=== PATIENT | female | born 1970 | race Hispanic/Latino ===

== ENCOUNTER 2017-12-09 17:05 | Emergency (ER) | payer OTHER ==
[2017-12-09 17:49] LABS: #Basophils 0.1 thou/uL (0.0-0.2); #Eosinphils 0.3 thou/uL (0.0-0.7); #Monocytes 0.8 thou/uL (0.11-0.59); #Neutrophils 6.7 thou/uL (1.40-6.50); %Basophils 0.5 % (0.0-1.0); %Eosinophils 2.7 % (0.0-10.0); %Lymphocytes 20.7 % (21.0-51.0); %Monocytes 7.7 % (0.0-10.0); %Neutrophils 68.4 % (42.0-75.0); Hemoglobin 15.8 g/dL (12.0-16.0); Mean Corpuscular HGB CONC 33.4 g/dL (32.0-36.0); Mean Corpuscular Hemoglobin 31.6 pg (27.0-31.0); Mean Corpuscular Volume 94.7 fl (81.0-99.0); Mean Platelet Volume 7.6 fL (7.4-10.4); Platelet Count 323 thou/uL (130-400); RBC Distribution Width 11.4 % (11.5-14.5); Red Blood Cell (RBC) Count 4.98 mill/uL (4.20-5.40); White Blood Cell (WBC) Count 9.8 thou/uL (4.8-10.8)
[2017-12-09 18:00] LABS: Bilirubin Negative (Negative); Blood, Urine Trace (Negative); Clarity CLOUDY (Clear); Glucose, Urine (Dipstick) Negative (Negative); Leukocyte Negative (Negative); Nitrite Negative (Negative); Protein, Urine (Dipstick) Negative (Neg-Trace); Specific Gravity, Urine 1.016 (1.002-1.036); Urobilinogen 0.2 mg/dL (0.2-1.0)
[2017-12-09 18:03] LABS: Bacteria/HPF 1+ HPF (None Seen); Hyaline Casts/LPF 0-3 HYALINE CAST LPF (0-3 Hyaline); WBC/HPF None Seen HPF (0-3)
[2017-12-09 18:06] LABS: RBC/HPF 0-3 HPF (0-3)
[2017-12-09 18:07] LABS: ALT (SGPT) 15 U/L (8-55); AST (SGOT) 17 U/L (5-34); Albumin 4.5 g/dL (3.5-5.0); Alkaline Phosphatase 88 U/L (40-150); Anion Gap 15 mmol/L (10-20); BUN (Urea Nitrogen) 12 mg/dL (7.0-18.7); Bilirubin, Total 0.4 mg/dL (0.2-1.2); Calc. Creatinine Clearance 0 mL/min (70-130); Calcium 9.2 mg/dL (7.8-10.44); Carbon Dioxide 24 mmol/L (22-29); Chloride 102 mmol/L (98-107); Estimated GFR-MDRD 76; Globulin 3.1 g/dL (2.4-3.5); Glucose 87 mg/dL (70-105); Potassium 3.8 mmol/L (3.5-5.1); Protein, Total 7.6 g/dL (6.0-8.3); Sodium 137 mmol/L (136-145)
== END 2017-12-09 18:58 | disposition home or self-care (01) ==
LOC: ERS 17:05
DX: R10.31 Right lower quadrant pain (principal); R10.813 Right lower quadrant abdominal tenderness; E07.9 Disorder of thyroid, unspecified; Z87.01 Personal history of pneumonia (recurrent); Z79.899 Other long term (current) drug therapy
CPT/HCPCS: 36415; 80053; 81003; 81015; 85025; 99284

== ENCOUNTER 2018-01-01 11:39 | Outpatient (CLI) | payer OTHER | END 2018-01-01 11:40 | disposition home or self-care (01) | LOC: BICMAMMO 11:39 | PROVIDERS: ATTEND Family Medicine | DX: Z12.31 Encounter for screening mammogram for malignant neoplasm of breast (principal); R92.1 Mammographic calcification found on diagnostic imaging of breast; Z80.3 Family history of malignant neoplasm of breast; Z85.850 Personal history of malignant neoplasm of thyroid | CPT/HCPCS: 77067 ==

== ENCOUNTER 2018-01-09 13:28 | Outpatient (CLI) | payer OTHER | END 2018-01-09 13:29 | disposition home or self-care (01) | LOC: BICMAMMO 13:28 | PROVIDERS: ATTEND Family Medicine | DX: R92.1 Mammographic calcification found on diagnostic imaging of breast (principal); Z80.3 Family history of malignant neoplasm of breast; Z85.850 Personal history of malignant neoplasm of thyroid | CPT/HCPCS: G0279 ==

== ENCOUNTER → 2018-01-15 | Day surgery (SDC) | payer OTHER ==
--- NOTE | 2018-01-15 10:12 | MMO ---
STEREOTACTIC BIOPSY LEFT BREAST MICROCALCIFICATIONS SURGICAL SPECIMEN MAMMOGRAPY LEFT BREAST BIOPSY LEFT DIAGNOSTIC MAMMOGRAM POST BIOPSY: History: Abnormal mammogram. Microcalcifications left breast. FINDINGS: After explaining the procedure and answering all questions, mammographic imaging of the left breast w as performed. Coordinates were calculated. Medial approach was planned. Sterile technique, buffered local anesthesia, stereotactic guidance, and a medial approach were used to carefully advance a 10 gauge vacuum assisted biopsy needle into the microcalcification cluster. Po sition was confirmed. 8 core specimens were obtained without difficulty. Surgical specimen mammography shows microcalcifications in the specimens. Localization clip was placed in the biopsy bed and position confirmed with stereotactic imaging. Need le was removed. Patient tolerated the procedure well and was eventually dismissed in good condition. POST PROCEDURE DIAGNOSTIC MAMMOGRAPHY LEFT BREAST: Images show gas pocket and localization clip in the biopsy bed. Microcalcifications have been removed . IMPRESSION: 1. Technically successful stereotactic guided biopsy left breast microcalcifications. Pathology is pe nding. POS: [facility]
== END ==
LOC: MAMMO 07:05
PROVIDERS: ATTEND Family Medicine
PROC: 0HBU3ZX Excision of Left Breast, Percutaneous Approach, Diagnostic (ICD-10-PCS; principal; 2018-01-15)
DX: N64.89 Other specified disorders of breast (principal)
CPT/HCPCS: 19081; 76098; 88305

== ENCOUNTER 2018-02-10 11:02 | Outpatient (CLI) | payer OTHER ==
[~2018-02-10 11:02] MED LIST: ISOVUE-370 76%-LOCM 1 ML ONE
== END 2018-02-10 11:03 | disposition home or self-care (01) ==
LOC: BICCT 11:02
PROVIDERS: ATTEND Obstetrics & Gynecology
DX: R10.31 Right lower quadrant pain (principal)
CPT/HCPCS: 74177

== ENCOUNTER 2018-04-14 08:24 | Emergency (ER) | payer OTHER ==
[2018-04-14 09:08] LABS: #Eosinphils 0.3 thou/uL (0.0-0.7); #Lymphocytes 1.6 thou/uL (1.20-3.40); #Monocytes 0.4 thou/uL (0.11-0.59); #Neutrophils 5.7 thou/uL (1.40-6.50); %Basophils 0.1 % (0.0-1.0); %Eosinophils 3.7 % (0.0-10.0); %Lymphocytes 19.6 % (21.0-51.0); %Monocytes 5.5 % (0.0-10.0); %Neutrophils 71.1 % (42.0-75.0); Mean Corpuscular HGB CONC 33.1 g/dL (32.0-36.0); Mean Corpuscular Hemoglobin 30.8 pg (27.0-31.0); Mean Platelet Volume 7.2 fL (7.4-10.4); Platelet Count 271 thou/uL (130-400); RBC Distribution Width 11.7 % (11.5-14.5); Red Blood Cell (RBC) Count 4.89 mill/uL (4.20-5.40)
[2018-04-14 09:18] LABS: Bilirubin Negative (Negative); Blood, Urine Negative (Negative); Clarity CLEAR (Clear); Glucose, Urine (Dipstick) Negative (Negative); Leukocyte Negative (Negative); Nitrite Negative (Negative); Protein, Urine (Dipstick) Negative (Neg-Trace); Specific Gravity, Urine 1.006 (1.002-1.036); Urobilinogen 0.2 mg/dL (0.2-1.0); pH, Urine 6.5 (5.0-9.0)
[2018-04-14 09:37] LABS: ALT (SGPT) 18 U/L (8-55); AST (SGOT) 18 U/L (5-34); Alkaline Phosphatase 75 U/L (40-150); Anion Gap 9 mmol/L (10-20); BUN (Urea Nitrogen) 9 mg/dL (7.0-18.7); Bilirubin, Total 0.5 mg/dL (0.2-1.2); Calc. Creatinine Clearance 0 mL/min (70-130); Calcium 8.4 mg/dL (7.8-10.44); Carbon Dioxide 25 mmol/L (22-29); Chloride 106 mmol/L (98-107); Estimated GFR-MDRD 89; Globulin 2.7 g/dL (2.4-3.5); Glucose 108 mg/dL (70-105); Lipase 16 U/L (8-78); Protein, Total 6.7 g/dL (6.0-8.3); Sodium 136 mmol/L (136-145)
[2018-04-14] MEDS ORDERED: Morphine 10 MG/ML VIAL ONE (09:44)
[2018-04-14] MEDS ORDERED: Ondansetron ODT 8 MG TAB ONE (09:44)
== END 2018-04-14 10:32 | disposition home or self-care (01) ==
LOC: ERS 08:24
DX: R10.31 Right lower quadrant pain (principal); Z85.850 Personal history of malignant neoplasm of thyroid; Z79.899 Other long term (current) drug therapy
CPT/HCPCS: 36415; 80053; 81003; 83690; 85025; 96374; J2270

== ENCOUNTER 2018-04-23 12:30 | Outpatient (CLI) | payer OTHER | END 2018-04-23 12:31 | disposition home or self-care (01) | LOC: LABBT 12:30 | PROVIDERS: ATTEND Obstetrics & Gynecology | DX: Z01.812 Encounter for preprocedural laboratory examination (principal); R10.2 Pelvic and perineal pain | CPT/HCPCS: 86850; 86900; 86901 ==

== ENCOUNTER 2018-04-24 08:41 | Day surgery (SDC) | payer OTHER ==
[2018-04-23 12:50] VITALS: BMI 34.0
[2018-04-24] MEDS ORDERED: Famotidine/PF 20 mg/2ml Vial ONE (09:33)
[2018-04-24] MEDS ORDERED: Gabapentin 300 MG CAP ONE (09:33)
[2018-04-24] MEDS ORDERED: CeleCOXIB 100 MG CAP ONE (09:34)
[2018-04-24] MEDS ORDERED: Midazolam HCl 2 mg/2 ml Vial ONE ×2 (10:04→11:52)
[2018-04-24] MEDS ORDERED: CEFAZOLIN/Water 2 GM/20 ML SYRINGE ONE (10:04)
[2018-04-24] MEDS ORDERED: Ropivacaine 0.2% 550 ML 750 ML NERVE BLCK SCH (11:15)
[2018-04-24] MEDS ORDERED: Bupivacaine HCl 0.5%/Epinephrine 1:200,000/PF 30 ml Vial ONE (11:42)
[2018-04-24] MEDS ORDERED: Fentanyl 100 MCG/2 ML VIAL ONE (11:52)
[2018-04-24] MEDS ORDERED: Dexamethasone 20 MG/5 ML VIAL ONE (12:10)
[2018-04-24] MEDS ORDERED: Ketorolac Tromethamine 30 MG/ML VIAL ONE (12:10)
[2018-04-24] MEDS ORDERED: Glycopyrrolate 0.2 MG/ML 5 ML SYRINGE ONE (12:10)
[2018-04-24] MEDS ORDERED: PHENYLEPHRINE-NS 100 MCG/ML 10 ML SYRINGE ONE (12:10)
[2018-04-24] MEDS ORDERED: Ondansetron HCl/PF 4 MG/2 ML Vial ONE (12:10)
[2018-04-24] MEDS ORDERED: PROPOFOL 200 MG/20 ML VIAL ONE (12:10)
[2018-04-24] MEDS ORDERED: Ropivacaine HCl/PF 750 ML in Premix Bag 1 BAG NERVE BLCK SCH (12:30)
[2018-04-24] MEDS ORDERED: SUGAMMADEX SODIUM 500 MG/5 ML VIAL ONE (13:40)
[2018-04-24] MEDS ORDERED: Meperidine HCl/PF 25 MG/ML VIAL ONE (14:07)
[2018-04-24] MEDS ORDERED: Ondansetron ODT 4 MG TAB ONE (16:04)
[2018-04-24] MEDS ORDERED: Promethazine HCl 25 MG/ML VIAL ONE (16:35)
--- NOTE | 2018-04-25 04:25 | OP ---
DATE OF SERVICE: 04/24/2018 PREOPERATIVE DIAGNOSIS: Severe chronic right adnexal pain. POSTOPERATIVE DIAGNOSIS: Severe chronic right adnexal pain. PROCEDURES PERFORMED: There is a robotic assisted diagnostic laparoscopy with a right oophorectomy a nd left distal salpingectomy, ON-Q pump placement. SURGEON: Tara Cruz D.O. FINAL INSPECTOR PAPER: Boris Marquez M.D. ESTIMATED BLOOD LOSS: 20 mL. IV FLUIDS: 1500 mL. URINE OUTPUT: 300 mL of clear urine. FINDINGS: Normal external genitalia, normal vaginal mucosa, and normal intact vaginal cuff. No sign s of granulation tissue or sources for vaginal bleeding. Mild pelvic adhesions from her prior hyster ectomy from the dome of the bladder to the vaginal cuff, mild adhesions from the right adnexa to the right pelvic sidewall and a left distal hydrosalpinx remaining connected to the left ovary. Normal a ppearing left ovary. INDICATIONS FOR THE PROCEDURE: Ms. Loera is a 47-year-old G4, P4 who presented to clinic with ch ronic pelvic pain. The patient had a history of a robotic-assisted total laparoscopic hysterectomy i n 2016 due to adenomyosis. She then underwent an additional robotic laparoscopy for a right ovarian cystectomy. Patient's symptoms had initially resolved after each surgery; however, subsequently were present again. The patient underwent several transvaginal ultrasounds in the clinic and in the [facility] department due to her severe right adnexal pain. She was counseled on different sources of leroy n and underwent a thorough evaluation. She was counseled on the option of diagnostic laparoscopy wit h a right oophorectomy, as her source of pain was largely near the right ovary and it was thought hayde t she may have scar tissue contributing to her severe pain. The patient desired this procedure. PROCEDURE IN DETAIL: The patient was brought to the operating room, she was placed under general ane sthesia, the patient was placed in dorsal lithotomy position and the arms were tucked and secured for robotic surgery. She was prepped and draped in a sterile fashion and was given Ancef for surgical p rophylaxis. An official timeout was performed. A vaginal exam was performed noting a normal appeari ng vaginal mucosa and vaginal cuff. A Ross catheter was placed in the bladder and gloves were excha nged and attention was turned to the abdominal portion and supraumbilical incision was made using the scalpel and the Veress needle was inserted into the peritoneal cavity. The peritoneal cavity was in sufflated using carbon dioxide, noting a normal pressure. An 11 mm port was placed at this site. Th e patient was placed into Trendelenburg position. Two additional robotic assistant professor of anthropology ports were placed in the right and left aspect of the abdomen using 8 mm ports and an additional assistant professor of anthropology port was pl aced on the right aspect using a 5 mm port. All ports were placed under direct visualization using l ocal anesthetic. The midline port was then extended slightly to accommodate the GelPOINT retractor t o allow for easy removal of the ovary. The GelPOINT Reji retractor was then placed and appropriate ly secured and the abdomen was reinsufflated. At this time, the robot was docked and the instruments were inserted. The pelvis was evaluated, noting the findings above. The right oophorectomy was fir st performed. The right ureter was identified transperitoneally, well away from the IP ligament. Th erefore, the IP ligament was coagulated multiple times and transected and there was some slight rotat ion on the right side that required transection for the removal of the ovary. The ovaries are placed in the pelvis. The left adnexa was then evaluated, noting the left distal hydrosalpinx still remain ed attached to the ovary. This was coagulated and removed also placed in the pelvis. The vaginal cu ff was evaluated. There was scar tissue along the cuff. There were no signs of overt endometriosis or other sources for her pain. The EndoCatch bag was placed into the abdomen and the ovary and left fallopian tube were placed within the bag and removed through the GelPOINT. The robotic instruments were removed from the patient. The robot was undocked from the patient. The ON-Q pump was then inse rted and then placed into the pelvis. The instruments removed and the abdomen was deflated and the t rocars removed. The patient was placed back and taken out of Trendelenburg position. The fascia at the midline port was closed in a running fashion using 0 Vicryl. The skin incisions were closed usin g 4-0 Monocryl and Dermabond. The patient tolerated the procedure well. There were no complications . She will be transferred to the PACU in hemodynamically stable condition and all counts were correc t x2.
== END 2018-04-24 17:55 | disposition home or self-care (01) ==
LOC: SDC 08:41
PROVIDERS: ATTEND Obstetrics & Gynecology
PROC: 0UT64ZZ Resection of Left Fallopian Tube, Percutaneous Endoscopic Approach (ICD-10-PCS; principal; 2018-04-24)
PROC: 0UT04ZZ Resection of Right Ovary, Percutaneous Endoscopic Approach (ICD-10-PCS; principal; 2018-04-24)
DX: N83.291 Other ovarian cyst, right side (principal); N70.11 Chronic salpingitis; G89.29 Other chronic pain; R10.2 Pelvic and perineal pain; Z79.899 Other long term (current) drug therapy; Z90.710 Acquired absence of both cervix and uterus
CPT/HCPCS: 86850; 86900; 86901; 88307; 96374; A4306; J0131; J0670; J1100; J1885; J2175; J2250; J2405; J2550; J2704; J2795; J3010; Q0162; S0028

== ENCOUNTER 2018-08-06 08:39 | Emergency (ER) | payer OTHER ==
[2018-08-06 09:29] LABS: #Eosinphils 0.2 thou/uL (0.0-0.7); #Lymphocytes 1.7 thou/uL (1.20-3.40); #Monocytes 0.5 thou/uL (0.11-0.59); #Neutrophils 4.5 thou/uL (1.40-6.50); %Basophils 0.3 % (0.0-1.0); %Eosinophils 3.4 % (0.0-10.0); %Lymphocytes 24.1 % (21.0-51.0); %Monocytes 7.4 % (0.0-10.0); %Neutrophils 64.9 % (42.0-75.0); Hemoglobin 16.5 g/dL (12.0-16.0); Mean Corpuscular HGB CONC 33.7 g/dL (32.0-36.0); Mean Corpuscular Hemoglobin 31.7 pg (27.0-31.0); Mean Platelet Volume 7.6 fL (7.4-10.4); Platelet Count 315 thou/uL (130-400); RBC Distribution Width 11.5 % (11.5-14.5); Red Blood Cell (RBC) Count 5.21 mill/uL (4.20-5.40)
[2018-08-06 09:32] LABS: Bilirubin Negative (Negative); Blood, Urine Negative (Negative); Clarity CLEAR (Clear); Glucose, Urine (Dipstick) Negative (Negative); Leukocyte Negative (Negative); Nitrite Negative (Negative); Protein, Urine (Dipstick) Negative (Neg-Trace); Specific Gravity, Urine 1.014 (1.002-1.036); Urobilinogen 0.2 mg/dL (0.2-1.0)
[2018-08-06] MEDS ORDERED: Ondansetron PF 4 MG/2 ML Vial ONE (09:33)
[2018-08-06] MEDS ORDERED: Morphine 2 MG/ML SYRINGE ONE (09:33)
[2018-08-06 09:57] LABS: ALT (SGPT) 24 U/L (8-55); AST (SGOT) 20 U/L (5-34); Albumin 4.5 g/dL (3.5-5.0); Alkaline Phosphatase 89 U/L (40-150); Anion Gap 13 mmol/L (10-20); BUN (Urea Nitrogen) 13 mg/dL (7.0-18.7); Bilirubin, Total 0.7 mg/dL (0.2-1.2); Calc. Creatinine Clearance 0 mL/min (70-130); Calcium 9.2 mg/dL (7.8-10.44); Carbon Dioxide 24 mmol/L (22-29); Chloride 102 mmol/L (98-107); Estimated GFR-MDRD 78; Globulin 3.1 g/dL (2.4-3.5); Glucose 97 mg/dL (70-105); Lipase 11 U/L (8-78); Potassium 3.8 mmol/L (3.5-5.1); Protein, Total 7.6 g/dL (6.0-8.3); Sodium 135 mmol/L (136-145)
--- NOTE | 2018-08-06 11:11 | CT ---
CTA ABDOMEN AND PELVIS WITH ORAL AND IV CONTRAST: HISTORY: Right lower quadrant abdominal pain. COMPARISON: 02/10/2018 FINDINGS: There are mild dependent changes in the lung bases. The liver demonstrates diffuse attenuation, comp ared to the spleen, consistent with fatty infiltration. There is a hyperenhancing 15 mm lesion in th e dome of the liver. The spleen, pancreas, adrenal glands, and kidneys are normal. No free air, trenton e fluid, or lymphadenopathy is seen in the abdomen or pelvis. A normal appearing appendix is noted. The small bowel loops are not abnormally dilated. The patient is post hysterectomy. A high-lying l eft ovary is redemonstrated. There are mild degenerative changes in the spine. IMPRESSION: 1. No evidence of appendicitis. 2. Fatty liver. 3. Hyperenhancing 15 mm liver lesion. Differential diagnosis includes flash filling hemangioma, foc al nodular hyperplasia, hepatic adenoma and primary or secondary malignancy. POS: [facility]
[2018-08-06] MEDS ORDERED: Iopamidol 370 76% 50 ML VIAL FS ONE (13:31)
[2018-08-06] MEDS ORDERED: ISOVUE-370 76%-LOCM 1 ML ONE (13:31)
== END 2018-08-06 11:55 | disposition home or self-care (01) ==
LOC: ERS 08:39
DX: R10.31 Right lower quadrant pain (principal); Z85.850 Personal history of malignant neoplasm of thyroid; Z79.899 Other long term (current) drug therapy
CPT/HCPCS: 74177; 80053; 81003; 83690; 85025; 96374; 96375; J2270; J2405

== ENCOUNTER 2018-09-09 07:39 | Day surgery (SDC) | payer OTHER ==
--- NOTE | 2018-08-26 20:55 | HP ---
SHORT STAY HISTORY AND PHYSICAL HISTORY OF PRESENT ILLNESS: This is a 47-year-old female with recurrent abdominal pain. The pain is almost always in the right lower quadrant. The patient has previous partial gastrectomy. The pain has been chronic in nature. The pain is predominantly in the right lower quadrant. There is no evidence of any rectal bleeding The patient will need a colonoscopy because of recurrent abdominal pain in the right lower quadrant with negative CAT scan. ALLERGIES: NONE. SOCIAL HISTORY: The patient is a nonsmoker. Drinks alcohol socially. PAST MEDICAL HISTORY: 1. Chronic abdominal pain. 2. Medullary carcinoma of thyroid, status post thyroidectomy and neck dissection. 3. Partial hysterectomy. 4. Adhesions. 5. Right oophorectomy. 6. Hypothyroidism. PHYSICAL EXAMINATION: GENERAL: Appears comfortable. VITAL SIGNS: Her pulse is 70, blood pressure 130/70. HEENT: Conjunctivae clear. CARDIAC: First and second heart sounds heard. LUNGS: Clear to auscultation. ABDOMEN: Soft. Abdomen is tender over the right lower quadrant with no rebound or guarding. Bowel sounds are normal. DIAGNOSES: Chronic abdominal pain. Negative CAT scan. PLAN: Colonoscopy. Job ID: [id number]
--- NOTE | 2018-09-09 01:52 | HP ---
HISTORY OF PRESENT ILLNESS: This is a 47-year-old female referred to me because of chronic abdominal pain. The patient has had chronic abdominal pain for some time. The patient has had a partial hysterectomy in the past. She was seen by Gynecology recently and had underwent laparoscopy and release of adhesions. However, her abdomen pain persists. The patient's pain predominantly was in the right lower abdomen. Her bowel movements are regular. No history of diarrhea or rectal bleeding. Her bowel movements are normal. The patient comes in for colonoscopy because of chronic abdominal pain over the right lower quadrant with negative workup in the past. ALLERGIES: NONE. SOCIAL HISTORY: The patient does not smoke, but drinks alcohol socially. MEDICAL ILLNESSES: 1. Chronic lower abdominal pain. 2. Medullary carcinoma of the thyroid, status post thyroidectomy, neck dissection, status post radioactive iodine treatment. 3. Partial hysterectomy. 4. Release of adhesions and right oophorectomy. 5. Hypothyroidism. PHYSICAL EXAMINATION: VITAL SIGNS: Pulse is 70, blood pressure 130/70. HEENT: Conjunctivae clear. CARDIOVASCULAR: First and second head sounds. LUNGS: Clear to auscultation. ABDOMEN: Soft. Abdomen is tender over the right lower quadrant. There is no rebound or guarding. No organomegaly. No masses. Bowel sounds are normal. ADMITTING DIAGNOSIS: Chronic abdominal pain, etiology unclear. PLAN: Colonoscopy. Job ID: [id number]
[2018-09-09] MEDS ORDERED: Midazolam HCl 2 mg/2 ml Vial ONE (08:37)
--- NOTE | 2018-09-09 20:25 | OP ---
DATE OF PROCEDURE: 09/09/2018 OPERATIVE PROCEDURE: Colonoscopy with polypectomy. PREOPERATIVE DIAGNOSES: A 47-year-old female with abdominal pain, which is chronic in nature. The pain is localized to right lower quadrant. The patient recently underwent laparoscopic right oophorectomy and also release of adhesions. The patient continued to have abdominal pain. The patient is undergoing colonoscopy. POSTOPERATIVE DIAGNOSES: 1. Sessile sigmoid polyp, status post snare cautery with good hemostasis. 2. Hemorrhoids. 3. There was no pathology seen in the right colon, especially the cecum or ascending colon. DESCRIPTION OF PROCEDURE: The patient was placed on her left lateral position and was given sedation by the Anesthesia Department. A rectal exam was done before the scope was advanced into the rectum. No lesions felt on rectal exam. A Pentax video colonoscope was introduced into the rectum and advanced all the way to the cecum. The prep was good. The patient did have some retained fecal material coating the mucosa. Water was irrigated and washed out. The appendiceal orifice, ileocecal valve, and cecum, no pathology seen. Withdrawal of the scope from the cecum to ascending colon and hepatic flexure, no pathology seen. The transverse colon, splenic flexure, and descending colon, no pathology seen. A sessile sigmoid colon polyp was removed with snare cautery with good hemostasis. Rectal hemorrhoids seen. DISCHARGE PLANNING: This is a 47-year-old female, came for a colonoscopy because of chronic right lower quadrant abdominal pain. The patient had a diagnostic laparoscopy by Dr. Tara Cruz in April of 2018, and had right oophorectomy and release of adhesions. The patient underwent colonoscopy because of persistent pain. The colonoscopy showed no pathology in the right colon. She had a polyp removed via polypectomy. DISCHARGE RECOMMENDATIONS: 1. The patient is advised to call me if she develops any abdominal pain or hematochezia. 2. In the absence of any above symptoms, she will come back to me in 2 weeks. Job ID: [id number]
== END 2018-09-09 10:45 | disposition home or self-care (01) ==
LOC: SDC 07:39
PROVIDERS: ATTEND Internal Medicine Gastroenterology
PROC: 0DBN8ZZ Excision of Sigmoid Colon, Via Natural or Artificial Opening Endoscopic (ICD-10-PCS; principal; 2018-09-09)
DX: K63.5 Polyp of colon (principal); E03.9 Hypothyroidism, unspecified; Z90.721 Acquired absence of ovaries, unilateral; Z90.710 Acquired absence of both cervix and uterus; Z90.89 Acquired absence of other organs; Z85.850 Personal history of malignant neoplasm of thyroid; Z92.3 Personal history of irradiation
CPT/HCPCS: 88305; J2250

== ENCOUNTER 2019-02-14 15:54 | Emergency (ER) | payer OTHER ==
[2019-02-14] MEDS ORDERED: Adacel (T-DAP) 0.5 ML SYRINGE ONE (16:20)
[2019-02-14] MEDS ORDERED: traMADol HCl 50 MG TAB ONE (16:27)
== END 2019-02-14 17:32 | disposition home or self-care (01) ==
LOC: ERS 15:54
DX: T23.252A Burn of second degree of left palm, initial encounter (principal); T31.0 Burns involving less than 10% of body surface; X15.0XXA Contact with hot stove (kitchen), initial encounter; Z23 Encounter for immunization
CPT/HCPCS: 90471; 90715

== ENCOUNTER 2020-06-15 07:37 | Outpatient (CLI) | payer OTHER ==
[2020-06-15 14:21] LABS: #Eosinphils 0.2 thou/uL (0.0-0.7); #Lymphocytes 1.8 thou/uL (1.20-3.40); #Monocytes 0.6 thou/uL (0.11-0.59); #Neutrophils 4.9 thou/uL (1.40-6.50); %Basophils 0.4 % (0.0-1.0); %Eosinophils 2.5 % (0.0-10.0); %Lymphocytes 23.4 % (21.0-51.0); %Monocytes 7.5 % (0.0-10.0); %Neutrophils 66.2 % (42.0-75.0); Hemoglobin 16.1 g/dL (12.0-16.0); Mean Corpuscular Hemoglobin 31.5 pg (27.0-31.0); Mean Corpuscular Volume 95.5 fL (78.0-98.0); Mean Platelet Volume 7.9 fL (7.4-10.4); Platelet Count 297 thou/uL (130-400); RBC Distribution Width 11.5 % (11.5-14.5); Red Blood Cell (RBC) Count 5.12 mill/uL (4.20-5.40); White Blood Cell (WBC) Count 7.5 thou/uL (4.8-10.8)
[2020-06-15 14:30] LABS: Bacteria/HPF None Seen HPF (None Seen); Bilirubin Negative (Negative); Blood, Urine Negative (Negative); Clarity Clear (Clear); Glucose, Urine (Dipstick) Normal (Negative); Ketone, Urine Trace mg/dL (Negative); Leukocyte Negative Leu/uL (Negative); Nitrite Negative (Negative); Protein, Urine (Dipstick) Negative (Neg-Trace); RBC/HPF 0-3 HPF (0-3); Specific Gravity, Urine 1.018 (1.002-1.036); Squamous Epithelial 0-3 HPF (0-3); Urobilinogen Normal mg/dL (Less than 2); WBC/HPF 0-3 HPF (0-3)
[2020-06-16 12:05] LABS: SARS-CoV-2 MS2 Positive; SARS-CoV-2 N Gene Negative; SARS-CoV-2 S Gene Negative; SARS-CoV-2 by NAA Not Detected (NotDetected); SARS-CoV-2 orf1ab Negative
== END 2020-06-15 07:38 | disposition home or self-care (01) ==
LOC: LABBT 07:37
PROVIDERS: ATTEND Student in an Organized Health Care Education/Training Program
DX: Z01.812 Encounter for preprocedural laboratory examination (principal); Z20.828 Contact with and (suspected) exposure to other viral communicable diseases; N39.3 Stress incontinence (female) (male)
CPT/HCPCS: 81001; 85025; 86850; 86900; 86901; 87086; 87635; U0003

== ENCOUNTER 2020-06-20 11:13 | Day surgery (SDC) | payer OTHER ==
[2020-06-16 12:29] VITALS: BMI 34.0
[~2020-06-20 11:13] MED LIST changes: +Dexamethasone 20 MG/5 ML VIAL ONE; +Fentanyl 250 MCG/5 ML VIAL ONE; -ISOVUE-370 76%-LOCM 1 ML ONE; +Lidocaine 1% PF 5 ML VIAL ONE; +Ondansetron PF 4 MG/2 ML Vial ONE; +PROPOFOL 200 MG/20 ML VIAL ONE
[2020-06-20] MEDS ORDERED: Famotidine/PF 20 mg/2ml Vial ONE (11:52)
[2020-06-20] MEDS ORDERED: Gabapentin 300 MG CAP ONE (11:52)
[2020-06-20] MEDS ORDERED: CeleCOXIB 100 MG CAP ONE (11:52)
[2020-06-20] MEDS ORDERED: Midazolam HCl 2 mg/2 ml Vial ONE (12:13)
[2020-06-20] MEDS ORDERED: Scopolamine 1.5 mg/72 hour Patch ONE (12:13)
[2020-06-20] MEDS ORDERED: Lidocaine 1% w/Epinephrine 1:100K 20 ML VIAL ONE (12:23)
[2020-06-20] MEDS ORDERED: Promethazine HCl 25 MG/ML VIAL ONE (15:28)
[2020-06-20] MEDS ORDERED: Morphine 2 MG/ML VIAL ONE (15:45)
[2020-06-20] MEDS ORDERED: HYDROcodone/Acetaminophen 5/325 mg Tablet ONE ×2 (16:59→18:07)
--- NOTE | 2020-06-21 12:42 | OP ---
DATE OF PROCEDURE: 06/20/2020 PREOPERATIVE DIAGNOSIS: incontinence. POSTOPERATIVE DIAGNOSIS: incontinence. PROCEDURES PERFORMED: Mid urethral sling and cystoscopy. ANESTHESIA: General endotracheal. ULTRASONIC TESTER SURGEON: Yelena Shin PA-C COMPLICATIONS: None. PATHOLOGY: None. DRAINS: Ross catheter. ESTIMATED BLOOD LOSS: 20 mL. URINE OUTPUT: 150 mL of clear urine. FINDINGS: On cystoscopy, no bladder perforations or masses were noted. No abnormalities. There was no sling material within the bladder and the course of the sling was noted upon manipulating the sling at the pubic symphysis. Bilateral ureteral jets were noted that were vigorous. There was excellent hemostasis of the surgical site at the vaginal incision. DESCRIPTION OF PROCEDURE: The patient was taken to the operating room, where general anesthesia was obtained without difficulty. The patient was prepped and draped in a sterile fashion in a dorsal lithotomy position. A Ross catheter was placed in the bladder, and a weighted speculum was placed in the vagina. The vaginal mucosa was grasped with 2 Allis' at the level of the mid urethra, and the vaginal mucosa was infiltrated with 1% lidocaine with epi. A #11 blade was used to make an incision along the mid urethra approximately 3 cm in length. The lateral edges of the incision were grasped with Allis clamps, and Metzenbaums were used to dissect the suburethral and subpubic space. A tunnel was made in the appropriate trajectory, where the sling would reside with the Metzenbaums bilaterally. Following this, the suprapubic area was marked, where the sling would exit, approximately 2 cm lateral to the midline. Approximately 60 mL of sterile saline was then injected with a spinal needle into the retropubic space for hydrodissection and to increase the space between the pubic bone and the bladder. This was done bilaterally. At that time, legs were placed in more of a low lithotomy position. The bladder was deviated with the bladder guidewire, and the [employer] Fit sling was placed initially on the left side. The bladder was then deviated to the contralateral side, and the sling was placed successfully on the right side as well without difficulty, and clamps were used at the pubic bone on the plastic sheath of the sling. At that time, the Ross catheter was then removed out of the bladder. The 70-degree cystoscope was assembled and inserted into the bladder. The bladder mucosa was within normal limits. There were no lesions or masses. The course was then visualized bilaterally, and the sling was then pulled at the pubic exit sites to visualize the course of the sling. There was no sling material within the bladder. No perforations were noted. The ureters were then visible bilaterally, and ureteral jets were noted bilaterally. The cystoscope was then removed, and the Ross catheter was placed in the bladder. The plastic piece on the sheath of the sling was cut and removed. The sheath was then pulled at the pubic exit site, and Jeffery scissors were used to allow the sling to be pulled against the mid urethra, ensuring to not over tighten the sling, and the sheath was pulled completely off the mesh. The mesh was then cut at the pubic exit sites. The incision was irrigated. The vaginal mucosa was closed with a 2-0 Vicryl in a running fashion, and excellent hemostasis was noted. All instruments were removed out of the vagina. The patient tolerated the procedure well. Sponge, lap, and needle counts were correct x2. The patient was taken to recovery room in stable condition. The patient received Ancef 2 g prior to the procedure. Job ID: [id number]
== END 2020-06-20 18:30 | disposition home or self-care (01) ==
LOC: SDC 11:13
PROVIDERS: ATTEND Student in an Organized Health Care Education/Training Program
PROC: 0TSC4ZZ Reposition Bladder Neck, Percutaneous Endoscopic Approach (ICD-10-PCS; principal; 2020-06-20)
DX: N39.3 Stress incontinence (female) (male) (principal); N39.0 Urinary tract infection, site not specified; Z79.899 Other long term (current) drug therapy; Z85.850 Personal history of malignant neoplasm of thyroid
CPT/HCPCS: C1781; J0690; J1100; J2250; J2270; J2405; J2550; J2704; J3010; S0028

== ENCOUNTER 2021-05-19 11:46 | Emergency (ER) | payer OTHER, SELFPAY ==
[~2021-05-19 11:46] MED LIST changes: -Dexamethasone 20 MG/5 ML VIAL ONE; -Fentanyl 250 MCG/5 ML VIAL ONE; +Iopamidol-370 76% 500 ML 1 ML ONE; -Lidocaine 1% PF 5 ML VIAL ONE; -Ondansetron PF 4 MG/2 ML Vial ONE; -PROPOFOL 200 MG/20 ML VIAL ONE
[2021-05-19 12:54] LABS: Bilirubin Negative (Negative); Blood, Urine Negative (Negative); Clarity Clear (Clear); Glucose, Urine (Dipstick) Normal (Negative); Ketone, Urine Negative (Negative); Leukocyte Negative Leu/uL (Negative); Nitrite Negative (Negative); Protein, Urine (Dipstick) Negative (Neg-Trace); Specific Gravity, Urine 1.005 (1.002-1.036); Urobilinogen Normal mg/dL (Less than 2); pH, Urine 6.5 (5.0-9.0)
[2021-05-19 13:10] LABS: #Eosinphils 0.3 thou/uL (0.0-0.7); #Lymphocytes 1.9 thou/uL (1.20-3.40); #Monocytes 0.7 thou/uL (0.11-0.59); #Neutrophils 5.2 thou/uL (1.40-6.50); %Basophils 0.3 % (0.0-1.0); %Eosinophils 4.3 % (0.0-10.0); %Lymphocytes 22.8 % (21.0-51.0); %Monocytes 8.2 % (0.0-10.0); %Neutrophils 64.4 % (42.0-75.0); Hemoglobin 14.6 g/dL (12.0-16.0); Mean Corpuscular HGB CONC 34.4 g/dL (32.0-36.0); Mean Corpuscular Hemoglobin 32.6 pg (27.0-31.0); Mean Corpuscular Volume 94.7 fL (78.0-98.0); Platelet Count 274 thou/uL (130-400); RBC Distribution Width 11.8 % (11.5-14.5); Red Blood Cell (RBC) Count 4.48 mill/uL (4.20-5.40); White Blood Cell (WBC) Count 8.1 thou/uL (4.8-10.8)
[2021-05-19 13:26] LABS: ALT (SGPT) 21 U/L (8-55); AST (SGOT) 16 U/L (5-34); Alkaline Phosphatase 89 U/L (40-110); Anion Gap 10 mmol/L (10-20); BUN (Urea Nitrogen) 10 mg/dL (7.0-18.7); Bilirubin, Total 0.5 mg/dL (0.2-1.2); Calc. Creatinine Clearance 0 mL/min (70-130); Calcium 9.2 mg/dL (7.8-10.44); Carbon Dioxide 28 mmol/L (22-29); Chloride 102 mmol/L (98-107); Globulin 2.9 g/dL (2.4-3.5); Glucose 100 mg/dL (70-105); Lipase 16 U/L (8-78); Potassium 3.9 mmol/L (3.5-5.1); Protein, Total 6.9 g/dL (6.0-8.3); Sodium 136 mmol/L (136-145)
[2021-05-19] MEDS ORDERED: Morphine 4 MG/ML VIAL ONE (13:36)
[2021-05-19] MEDS ORDERED: Ondansetron PF 4 MG/2 ML Vial ONE (13:36)
== END 2021-05-19 14:12 | disposition home or self-care (01) ==
LOC: ERS 11:46
DX: R10.31 Right lower quadrant pain (principal); R19.7 Diarrhea, unspecified
CPT/HCPCS: 36415; 74177; 80053; 81003; 83690; 85025; 96374; 96375; J2270; J2405; Q9967

== ENCOUNTER 2021-06-26 07:31 | Emergency (ER) | payer OTHER ==
[2021-06-26 11:33] LABS: SARS-CoV-2 PCR by NAA Not Detected (NotDetected)
== END 2021-06-26 08:45 | disposition home or self-care (01) ==
LOC: ERS 07:31
DX: R05.9 Cough, unspecified (principal); R52 Pain, unspecified; Z20.822 Contact with and (suspected) exposure to COVID-19; Z85.850 Personal history of malignant neoplasm of thyroid
CPT/HCPCS: 71045; U0003; U0005

== ENCOUNTER 2021-10-19 21:26 | Emergency (ER) | payer OTHER ==
[2021-10-19] MEDS ORDERED: Fentanyl 100 MCG/2 ML VIAL ONE (22:37)
[2021-10-19] MEDS ORDERED: carBAMazepine 100 mg Chewable Tablet PO SCH (23:45)
== END 2021-10-20 00:09 | disposition home or self-care (01) ==
LOC: ERS 21:26
DX: G50.0 Trigeminal neuralgia (principal)
CPT/HCPCS: 96374; J3010

== ENCOUNTER 2022-06-08 15:01 | Outpatient (CLI) | payer OTHER ==
[~2022-06-08 15:01] MED LIST changes: +Iopamidol 370 76% 100 ML VIAL ONE; -Iopamidol-370 76% 500 ML 1 ML ONE
== END 2022-06-08 15:02 | disposition home or self-care (01) ==
LOC: BICCT 15:01
PROVIDERS: ATTEND Internal Medicine
DX: R31.29 Other microscopic hematuria (principal); K76.0 Fatty (change of) liver, not elsewhere classified
CPT/HCPCS: 74178; Q9967

== ENCOUNTER 2022-07-11 18:00 | Outpatient (CLI) | payer OTHER | END 2022-07-11 18:01 | disposition home or self-care (01) | LOC: SLEEPLAB 18:00 | PROVIDERS: ATTEND Internal Medicine | DX: G47.33 Obstructive sleep apnea (adult) (pediatric) (principal); R53.83 Other fatigue; R51.9 Headache, unspecified; E66.9 Obesity, unspecified; R06.83 Snoring; G47.00 Insomnia, unspecified; Z68.37 Body mass index [BMI] 37.0-37.9, adult | CPT/HCPCS: 95800 ==

== ENCOUNTER 2022-11-27 12:41 | Outpatient (CLI) | payer OTHER | END 2022-11-27 12:42 | disposition home or self-care (01) | LOC: BICMAMMO 12:41 | PROVIDERS: ATTEND Radiology Radiation Oncology | DX: D05.11 Intraductal carcinoma in situ of right breast (principal); N64.4 Mastodynia; Z91.89 Other specified personal risk factors, not elsewhere classified; Z98.890 Other specified postprocedural states; Z80.3 Family history of malignant neoplasm of breast | CPT/HCPCS: 77066; G0279 ==